=== PATIENT | male | born 1955 | race Caucasian/White ===

== ENCOUNTER 2020-10-09 11:18 | Inpatient (IN) | payer MEDICARE ==
[~2020-10-09] VITALS: Ht 172.7 cm; Wt 101.6 kg
[~2020-10-09 11:18] MED LIST: AMBIEN10 MG PO; CALCIUM500 MG PO; CARAFATE1 GM PO; ECOTRIN81 MG PO; FISH OIL 1,0001 EACH PO; FOLIC ACID 1 MG1 MG PO; KEFLEX500 MG PO; LEVAQUIN TAB 5500 MG PO; METHOTREXATE T2.5 MG PO; NIACIN500 MG PO; NITROSTAT0.4 MG PO; NORCO 5-325 TA1 EACH PO; PHENERGAN 25 MG25 M1 PO; PROTONIX40 MG PO; SINGULAIR10 MG PO; TOPROL XL50 MG PO; TYLENOL W/CODEIN1 E1 PO; VOLTAREN EC 7575 MG PO; ZESTRIL/PRINIVI10 MG PO
[2020-10-09 12:14] LABS: HEMOGLOBIN 16.6 gm/dl (14.0-17.5); RED BLOOD COUNT 5.05 M/UL (4.20-5.50); WHITE BLOOD COUNT 4.4 K/UL (4.5-11.0)
[2020-10-09 12:41] LABS: BUN/CREATININE RATIO 15 (0-10)
[2020-10-09] MEDS ORDERED: HYDROXYZINE HCL10 MG PO (15:10)
[2020-10-09] MEDS ORDERED: KENALOG CREAM 015 GM TOP (15:11)
[2020-10-09] MEDS ORDERED: NITROSTAT0.4 MG SL (15:11)
[2020-10-09] MEDS ORDERED: VITAMIN C500 M4 PO (16:01)
[2020-10-10 03:32] LABS: HEMOGLOBIN 15.1 gm/dl (14.0-17.5); RED BLOOD COUNT 4.63 M/UL (4.20-5.50)
[2020-10-10 03:34] LABS: WHITE BLOOD COUNT 3.1 K/UL (4.5-11.0)
[2020-10-10 04:06] LABS: BUN/CREATININE RATIO 21 (0-10)
[2020-10-11 03:33] LABS: HEMOGLOBIN 15.4 gm/dl (14.0-17.5); RED BLOOD COUNT 4.72 M/UL (4.20-5.50)
[2020-10-11 03:41] LABS: WHITE BLOOD COUNT 6.6 K/UL (4.5-11.0)
[2020-10-11 03:53] LABS: BUN/CREATININE RATIO 21 (0-10)
[2020-10-12 03:08] LABS: BUN/CREATININE RATIO 23 (0-10)
[2020-10-13] MEDS ORDERED: DECADRON6 MG PO (11:49)
[2021-01-06] MEDS ORDERED: OTEZLA30 MG PO (08:47)
== END 2020-10-13 18:16 | disposition home or self-care (01) | DRG 177 ==
LOC: ER1 11:18 → CDU 13:39 → M/S 19:47
PROVIDERS: Emergency Medicine; ADMIT Internal Medicine
PROC: XW033E5 Introduction of Remdesivir Anti-infective into Peripheral Vein, Percutaneous Approach, New Technology Group 5 (ICD-10-PCS; principal; 2020-10-09)
PROC: 8E0ZXY6 Isolation (ICD-10-PCS; 2020-10-09)
PROC: XW13325 Transfusion of Convalescent Plasma (Nonautologous) into Peripheral Vein, Percutaneous Approach, New Technology Group 5 (ICD-10-PCS; 2020-10-12)
DX: U07.1 COVID-19 (principal); J12.82 Pneumonia due to coronavirus disease 2019; J96.01 Acute respiratory failure with hypoxia; D69.6 Thrombocytopenia, unspecified; M19.90 Unspecified osteoarthritis, unspecified site; L40.9 Psoriasis, unspecified; I10 Essential (primary) hypertension; R19.7 Diarrhea, unspecified; J44.9 Chronic obstructive pulmonary disease, unspecified; D72.819 Decreased white blood cell count, unspecified; Z95.0 Presence of cardiac pacemaker
CPT/HCPCS: 0240U; 36415; 36430; 36600; 71045; 80048; 80053; 81001; 82550; 82553; 82803; 83605; 83874; 83880; 84484; 85025; 85379; 85610; 86900; 86901; 86927; 87040; 93005; 94640; 94660; 94664; 94760; 96365; 96366; 96367; 96375; 99285; J0696; J1100; J1650; J7030

== ENCOUNTER → 2021-01-06 | Day surgery (SDC) | payer MEDICARE ==
[~2021-01-06] MED LIST changes: +DECADRON6 MG PO; +HYDROXYZINE HCL10 MG PO; +KENALOG CREAM 015 GM TOP; +NITROSTAT0.4 MG SL; +OTEZLA30 MG PO; +VITAMIN C500 M4 PO
== END | disposition home or self-care (01) ==
LOC: OR 07:43
DX: D12.2 Benign neoplasm of ascending colon (principal); D12.3 Benign neoplasm of transverse colon; D12.4 Benign neoplasm of descending colon; K64.1 Second degree hemorrhoids; K64.4 Residual hemorrhoidal skin tags; K29.50 Unspecified chronic gastritis without bleeding; K29.80 Duodenitis without bleeding; K31.7 Polyp of stomach and duodenum; K31.9 Disease of stomach and duodenum, unspecified; K21.00 Gastro-esophageal reflux disease with esophagitis, without bleeding; I11.9 Hypertensive heart disease without heart failure; M06.9 Rheumatoid arthritis, unspecified; L40.9 Psoriasis, unspecified; J44.9 Chronic obstructive pulmonary disease, unspecified; E66.01 Morbid (severe) obesity due to excess calories; Z68.38 Body mass index [BMI] 38.0-38.9, adult; Z95.0 Presence of cardiac pacemaker; Z88.8 Allergy status to other drugs, medicaments and biological substances; Z79.899 Other long term (current) drug therapy
CPT/HCPCS: J2704; J7040

== ENCOUNTER → 2021-02-20 | Outpatient (CLI) | payer MEDICARE ==
[2021-02-20 10:42] LABS: BUN/CREATININE RATIO 14 (0-10)
== END ==
LOC: LAB 09:11
PROVIDERS: Physician Assistant
DX: R07.89 Other chest pain (principal); R06.02 Shortness of breath; I11.0 Hypertensive heart disease with heart failure; I50.22 Chronic systolic (congestive) heart failure; I42.0 Dilated cardiomyopathy; I95.1 Orthostatic hypotension; I47.2 Ventricular tachycardia; I25.10 Atherosclerotic heart disease of native coronary artery without angina pectoris; I49.5 Sick sinus syndrome; R60.9 Edema, unspecified; R00.2 Palpitations; R63.1 Polydipsia; Z86.16 Personal history of COVID-19
CPT/HCPCS: 36415; 71046; 80048; 83735; 83880; 84439; 84443

== ENCOUNTER → 2021-03-11 | Outpatient (CLI) | payer MEDICARE | LOC: HEART 5 10:19 | DX: R07.89 Other chest pain (principal); I42.9 Cardiomyopathy, unspecified; I50.22 Chronic systolic (congestive) heart failure; I42.0 Dilated cardiomyopathy; R55 Syncope and collapse; R00.2 Palpitations; R06.02 Shortness of breath | CPT/HCPCS: 93306 ==

== ENCOUNTER → 2021-04-16 | Outpatient (CLI) | payer MEDICARE | LOC: HEART 5 07:57 | DX: Z01.810 Encounter for preprocedural cardiovascular examination (principal); I20.9 Angina pectoris, unspecified; I47.2 Ventricular tachycardia; R06.02 Shortness of breath | CPT/HCPCS: 78452; A9502; J2785 ==

== ENCOUNTER → 2022-03-22 | Outpatient (CLI) | payer MEDICARE | LOC: US 13:19 | DX: M79.604 Pain in right leg (principal); M79.605 Pain in left leg; M79.671 Pain in right foot; M79.672 Pain in left foot | CPT/HCPCS: 93922 ==